=== PATIENT | male | born 1930 | race Caucasian/White ===

== ENCOUNTER 2017-01-04 23:33 | Inpatient (IN) | payer MEDICARE ==
--- NOTE | ~2017-01-04 | CN ---
Consultation Report [facility] [address] [place]. [address] NAME: JOCELYNE THOMAS LANETTE SR : [birth year] STATUS : ADM IN PAT#: [id number] AGE: 86 ADM/REG DATE : 01/05/17 MR#: [id number] REPORT SERV DATE: 01/06/17 DICTATED BY: CHANDU CISNEROS DATE: 01/06/17 REPORT STATUS : Draft TRANSCRIBED BY: MODReji DATE: 01/06/17 NEUROLOGY CONSULTATION DATE OF CONSULTATION: 01/06/2017 REASON FOR CONSULTATION: Acute encephalopathy. HOSPITALIST: Flaco Garcia II, MD HISTORY OF PRESENT ILLNESS: The patient is an 86-year-old male who has a history of progressive confusion, also gait abnormality, and as of Friday, he started having active hallucinations with delirium. According to the patient's son, the patient seem to be coping well until Friday. The patient went on all day trip with his son to [place]. During the ride, the patient began actively hallucinating. He saw a truck load of 250 cows. He also saw chickens and pigs that were flying and had active visual hallucinations of his . The patient was not aggressive or belligerent, however, he had a flight of ideas. He also saw all the different counties of [place] on the joshi. Consequently, he was brought to the hospital because of the acute mental status changes he was exhibiting. When questioned more extensively, the patient mentions that over the last nine months to one year, he has had a change in his gait, his gait has become more cumbersome, more slow, and shuffled. He has had trouble with imbalance. He cannot walk on an incline or decline because he will trip and fall. He has to use a cane for stability. The patient also mentions, however, that he has severe peripheral neuropathy due to his diabetes. The patient also has severe macular degeneration. He is legally blind. Because of this, he has started having visual hallucinations. Lastly, the patient denies having any urinary incontinence. PAST MEDICAL HISTORY: Dementia, stroke to the right basal ganglia region, melanoma, diabetic neuropathy, macular degeneration with blindness, gait abnormalities, hypertension, diabetes mellitus type 2, COPD, pulmonary fibrosis, pacemaker placement, BPPV, and history of tobacco abuse and rheumatoid arthritis. PAST SURGICAL HISTORY: Melanoma removal, pacemaker placement, cholecystectomy, left knee surgery, hemorrhoidectomy x3, right rotator cuff repair, left foot surgery, bladder surgery, and gout. HOME MEDICATION LIST: Includes Tylenol p.r.n., Zyloprim 300 mg daily, aspirin 81 mg daily, Symbicort inhaler 160 mg/4.5 mg two puffs twice a day, Plavix 75 mg daily, vitamin B12 a 1000 mg sublingual daily, Amaryl 2 mg daily, Remicade drip every six weeks, Hyzaar 100 mg/12.5 mg daily, prednisone 10 mg daily, and Plaquenil 200 mg twice a day. ALLERGIES: CODEINE. Consultation Report [facility] [address] [facility] [place]. [address] NAME: JOCELYNE THOMAS LANETTE SR : [birth year] STATUS : ADM IN [facility]#: [id number] AGE: 86 ADM/REG DATE : 01/05/17 MR#: [id number] REPORT SERV DATE: 01/06/17 DICTATED BY: CHANDU CISNREOS DATE: 01/06/17 REPORT STATUS : Draft TRANSCRIBED BY: SABA DATE: 01/06/17 SOCIAL HISTORY: The patient is a . His approximately three years ago. He lives with his son. He has six children. He had multiple various jobs throughout his life. He is a remote smoker. Does not drink alcohol or use recreational drugs. FAMILY HISTORY: The patient's mother in her 70s from an [place]. His father at age of 96 from old age. The patient had three brothers and four sisters. REVIEW OF SYSTEMS: For pertinent positives, please refer to HPI. PHYSICAL EXAMINATION: GENERAL: The patient is an 86-year-old male who stands 5 feet 8 inches tall and weighs 142 pounds. He is currently afebrile. VITAL SIGNS: Heart rate 60 and paced, respiratory rate is 20, O2 saturations on 1 L 98%, blood pressure 109/61. NEURO: The patient is chatty. He is pleasant and cooperative. He is alert and oriented x4. Speech is clear. Language fluent. Pupils are 3 mm, sluggish to react. EOMs intact. Hand motion only at 5 feet bilaterally. Peripheral vision, difficult to assess. Cranial nerves, otherwise cranial nerves II through XII are intact. [id number], no ataxia. Upper extremity strength is 5/5. There is no pronator drift. Upper DTRs 1+ bilaterally. Lower DTRs unable to elicit, severe neuropathy from the toes to above the knees, greater in the left than the right. Strength is a 4/5 bilaterally. The patient can ambulate, but his gait is wide based, it is shuffled, and he is very imbalanced. Romberg is untestable. LABORATORY DATA: CBC normal. BMP relatively normal. Glucose was down to 37, but is within normal range at this time. TSH 3.10. Urinalysis is negative for UTI. CT of the brain, stable, ventriculomegaly, no evidence of acute changes. ASSESSMENT/PLAN: 1. Acute encephalopathy, resolved, etiology unknown. The patient cannot undergo MRI since he has a pacemaker. CT of the brain showed no acute changes, but ventriculomegaly. The patient will have lab work checked. At this point, he cannot undergo a lumbar puncture since he is on Plavix. 2. Possible NPH. The patient will undergo NPH evaluation on an outpatient basis. 3. Dementia. The patient will also undergo a dementia workup on an outpatient basis. 4. Macular degeneration. 5. Severe peripheral neuropathy. The patient's education was done on diabetes management. Thank you again for including us in consultation. FLORES/SABA Consultation Report [address] [address] NAME: JOCELYNE THOMAS LANETTE SR : [birth year] STATUS : ADM IN PAT#: [id number] AGE: 86 ADM/REG DATE : 01/05/17 MR#: [id number] REPORT SERV DATE: 01/06/17 DICTATED BY: CHANDU CISNEROS DATE: 01/06/17 REPORT STATUS : Draft TRANSCRIBED BY: SABA DATE: 01/06/17 CHYNA Mendoza- / [id number] CC: MD Cristo Hodgson II, M.D.
--- NOTE | ~2017-01-04 | DS ---
Discharge Summary [address] [place]. [address] NAME: JOCELYNE THOMAS LANETTE SR : [birth year] STATUS : DIS IN PAT#: [id number] AGE: 86 ADM/REG DATE : 01/05/17 MR#: [id number] REPORT SERV DATE: 01/09/17 DICTATED BY: NIRAV HUSAIN DATE: 01/08/17 REPORT STATUS : Draft TRANSCRIBED BY: MODL DATE: 01/08/17 ADMISSION DATE: 01/04/2017 DISCHARGE DATE: 01/08/2017 DISCHARGE DIAGNOSES: 1. Acute encephalopathy, toxic metabolic with possible component of normal pressure hydrocephalus. 2. Possible normal pressure hydrocephalus. 3. Cognitive impairment, question underlying dementia. 4. 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 5. Previous stroke. 6. Acute kidney injury. 7. Type 2 diabetes with in-hospital hypoglycemia, off therapy, question related to Plaquenil, on hold at this time pending Rheumatology follow up. 8. Rheumatoid arthritis, on chronic immunosuppression with Plaquenil, low-dose prednisone and Remicade. 9. Chronic obstructive pulmonary disease. 10.Interstitial lung disease. 11.Nocturnal hypoxemia, on h.s. oxygen. 12.Hypertension. 13.Gout. 14.Legal blindness, secondary to macular degeneration. 15.Peripheral neuropathy. 16.Possible vitamin D deficiency. 17.Coronary disease, post stenting. 18.Sick sinus syndrome, post pacemaker placement. 19.B12 deficiency. OPERATIONS AND PROCEDURES: None. PRESENT ILLNESS: This is an 86-year-old white male, who was triaged in the emergency room on 01/04/2017, at 2323 hours, with worsening hallucinations and a change in mental status. After evaluation in the emergency room, he was referred to the Hospitalist Service for admission. He was seen by Dr. Dileep Zamudio and admitted as described on admission history and physical examination. ADDITIONAL HISTORY: Per Dr. Zamudio. PHYSICAL EXAMINATION: Per Dr. Zamudio. ADMISSION LABORATORY: Per Dr. Zamudio. HOSPITAL COURSE: He was admitted by Dr. Zamudio with: 1. Acute encephalopathy. Consideration was progression of dementia. Discharge Summary [address] [place]. [address] NAME: JOCELYNE THOMAS LANETTE SR : [birth year] STATUS : DIS IN PAT#: [id number] AGE: 86 ADM/REG DATE : 01/05/17 MR#: [id number] REPORT SERV DATE: 01/09/17 DICTATED BY: NIRAV HUSAIN DATE: 01/08/17 REPORT STATUS : Draft TRANSCRIBED BY: MODReji DATE: 01/08/17 2. Acute kidney injury. 3. All the above occurring in the above-mentioned comorbidities. He was admitted to [address] [place] [address]. Antipsychotics were initiated. Neurology consultation was obtained. His hospital care was by Dr. Garcia on 01/05/2017 and 01/06/2017, and the undersigned on 01/07/2017 and 01/08/2017. He was seen by Neurology, Abbi Lewsi and Dr. Clemons. MRI was suggested, but could not be done because of his pacemaker. NPH was entertained, but a lumbar puncture could not be done because of his Plavix use. It was suggested this be considered on an outpatient basis when cleared for temporary Plavix discontinuation by Cardiology. On admission, his losartan and hydrochlorothiazide was discontinued. Subsequently, his glimepiride was discontinued when he became hypoglycemic. He was given IV hydration. When initially seen by me on 01/07/2017, his daughter was present. The patient had no new symptoms. He actually was asymptomatic. Overall, he was thought to be close to his baseline state except for some hypoglycemia. At this point, he was off glimepiride. There was concern that some of his hypoglycemia might be related to Plaquenil, which was discontinued. Subsequent blood sugars were normal. Additional history noted that his visual hallucinations dated about 2 years from a head injury. When seen on 01/08/2017, he was initially noted to be ambulating in green with another daughter. The patient was cognitively clearer than he had been in the previous 24 hours. He was basically asymptomatic. There were no new findings on exam. His data relative to his presentation was reviewed: 1. A CMP had been normal except for mild hypernatremia. A TSH, folate, B12, and ammonia levels had all been normal. An ionized calcium was borderline high at 5.04. A vitamin D25(OH) was low at 21. 2. CBCs were normal. In addition to the above, a chest x-ray had not shown any new pulmonary infiltrate with stable advanced fibrotic lung disease. Telemetry monitoring showed a paced rhythm with occasional PVCs without any sustained arrhythmias. At this point, it was felt he had achieved a level of improvement and stability where he could be safely discharged home with outpatient followup to see Dr. Melvin, Dr. King, the Neurology group, Dr. Ga, and his primary care physician, Dr. Robbins. Current plans are if cleared by Dr. Melvin for temporary discontinuation of Plavix, he would have a large volume lumbar puncture done by Neurology, i.e. normal pressure hydrocephalus diagnosis. His Plaquenil will be held at this time given his current blood sugars, pending outpatient followup with Rheumatology. Discharge Summary [place] [id number] [place]. [address] NAME: JOCELYNE THOMAS LANETTE SR : [birth year] STATUS : DIS IN PAT#: [id number] AGE: 86 ADM/REG DATE : 01/05/17 MR#: [id number] REPORT SERV DATE: 01/09/17 DICTATED BY: NIRAV HUSAIN DATE: 01/08/17 REPORT STATUS : Draft TRANSCRIBED BY: MODL DATE: 01/08/17 Home Health Care will be arranged for occupational therapy, evaluation, and treatment, medication reconciliation, home evaluation, and diabetes management. 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 DISCHARGE MEDICATIONS: Pending outpatient followup: Zyloprim 300 mg daily, aspirin 81 mg daily, Plavix 75 mg daily, B12 1000 mcg sublingually daily, prednisone 10 mg daily, Symbicort two puffs twice daily, Remicade every 6 weeks, Hyzaar one-half tablet daily 100/12.5, and no Amaryl. He will continue his home O2 at night. On office followup with Dr. Robbins in one week, he will need a BMP and blood pressure check. Discharge time greater than 30 minutes. DD/MODL Nirav Husain M.D. / [id number] CC: [place] Christine M.D. Chun C. Huang, MD James E Gilbert II, MD Louann L. Johnson, [facility] Aristeo Melvin M.D., F.A.C.C. Dileep Zamudio M.D.
--- NOTE | ~2017-01-04 | HP ---
History And Physical [address] [address] NAME: JOCELYNE THOMAS LANETTE SR : [birth year] STATUS : ADM Sigifredo PAT#: [id number] AGE: 86 ADM/REG DATE : 01/04/17 MR#: [id number] REPORT SERV DATE: 01/05/17 DICTATED BY: TONIA MCNEIL DATE: 01/05/17 REPORT STATUS : Draft TRANSCRIBED BY: MODReji DATE: 01/05/17 DATE OF ADMISSION: 01/04/2017 CHIEF COMPLAINT: An 86-year-old male presenting with increasing progressive confusion, now to a point where he has active hallucinations with agitation. HISTORY OF PRESENT ILLNESS: The patient's history was obtained through careful interview with patient, son, two daughters coupled with review of [facility] medical records. The patient has known symptoms of dementia, although he has never been actually given the diagnosis of dementia. It has really progressed over the last six weeks, but in the last week alone it has become at times difficult to control and debilitating according to the family. The patient awoke at about 5:00 a.m. on the morning leading up to admission and he immediately began to be talkative, agitated, and have active hallucinations throughout the day that at one point he claims he had a floating horse head talking to him, that there were cattle trucks driving up near his house, and when he came to the hospital he believed that he was being brought to a barn. He has had no hemiparesis, no dysarthria, no double vision, no facial droop, no gait disturbance, no headaches. He has had a good appetite. No weight loss. No shortness of breath. No chest pain. No nausea or vomiting. No diarrhea. Sometimes his left upper quadrant has intermittent discomfort and pain, but he is unable to describe this pain further. REVIEW OF SYSTEMS: Otherwise, a 14-point review of systems was obtained and was negative. PAST MEDICAL HISTORY: 1. Dementia. 2. Stroke, right basal ganglia lacunar. 3. Melanoma. 4. Neuropathy. 5. Macular degeneration with blindness. 6. Gout. 7. Hypertension. 8. Diabetes. 9. COPD. 10.Pulmonary fibrosis followed by Dr. Ga on nighttime nasal cannula oxygen. 11.Pacemaker. 12.Benign positional vertigo. History And Physical [address] [place]. [address] NAME: JOCELYNE THOMAS LANETTE SR : [birth year] STATUS : ADM Sigifredo PAT#: [id number] AGE: 86 ADM/REG DATE : 01/04/17 MR#: [id number] REPORT SERV DATE: 01/05/17 DICTATED BY: TONIA MCNEIL DATE: 01/05/17 REPORT STATUS : Draft TRANSCRIBED BY: MODL DATE: 01/05/17 PAST SURGICAL HISTORY: 1. Melanoma removed from the arm in 2006. 2. Pacemaker. 3. Cholecystectomy. 4. Left knee surgery. 5. Hemorrhoidectomy x3. 6. Right rotator cuff repair. 7. Left foot surgery. 8. Bladder surgery. ALLERGIES: TO CODEINE. SOCIAL HISTORY: Quit smoking when he was 49 years old. No alcohol use. He has been a for about three years now. He is living with his son in [place], [place]. FAMILY HISTORY: Heart disease, diabetes, and stroke. CURRENT MEDICATIONS: 1. Tylenol. 2. Allopurinol 300 mg daily. 3. Aspirin 81 mg daily. 4. Symbicort two puffs inhale twice a day. 5. Plavix 75 mg daily. 6. Vitamin B12. 7. Amaryl 2 mg daily. 8. Remicade drip every six weeks. 9. Hyzaar 100/12.5 mg p.o. daily. 10.Prednisone 10 mg daily. 11.Plaquenil 200 mg p.o. b.i.d. PHYSICAL EXAMINATION: VITAL SIGNS: Temperature 98.9, pulse 70, blood pressure 205/95, respiratory rate 16, and O2 saturation 92% on room air. GENERAL: An ill male, just agitated, confused, and rambling on with active hallucinations. No evidence of distress otherwise. HEENT: Pupils equal, round, and reactive to light. No conjunctival pallor. No scleral icterus. Nares are patent. Oropharynx is clear of obstruction. Dry mucous membranes. NEUROLOGICAL: Difficult to assess the patient's cranial nerves as he does not to participate fully with exam, but it seems that he has no facial droop. No cranial nerve abnormalities that are obvious, and he is moving all four extremities symmetrically. NECK: Trachea midline. No thyromegaly. LYMPH: No cervical lymphadenopathy. No supraclavicular lymphadenopathy. RESPIRATORY: Clear to auscultation at bases. There are mild dry crackles throughout exam. No respiratory distress. CARDIOVASCULAR: Regular rate and rhythm. No murmurs, rubs, or gallops. No extremity edema is appreciated. History And Physical [address] [place]. [address] NAME: JOCELYNE THOMASN SR : [birth year] STATUS : ADM Sigifredo PAT#: [id number] AGE: 86 ADM/REG DATE : 01/04/17 MR#: [id number] REPORT SERV DATE: 01/05/17 DICTATED BY: TONIA MCNEIL DATE: 01/05/17 REPORT STATUS : Draft TRANSCRIBED BY: MODL DATE: 01/05/17 ABDOMEN: Soft, nontender, and nondistended. Normal bowel sounds auscultated throughout. No organomegaly. DERMATOLOGICAL: Warm and dry extremities. No pallor. No cyanosis. PSYCHIATRIC: Actively hallucinating and animated affects. Claims to be in a good mood. Alert. Disoriented x3. LABORATORY DATA: White blood cell count 9.1, hemoglobin 15, hematocrit 45, and platelets 193. Sodium 144, potassium 3.3, chloride 107, bicarb 33, BUN 20, creatinine 1.14, and glucose 153. Baseline creatinine of 0.8. STUDIES: 1. Chest x-ray by my own evaluation shows chronic interstitial lung disease, stable compared to October 2012 chest x-ray. 2. CT scan of the brain without contrast shows no acute intracranial process. ASSESSMENT AND PLAN: 1. Acute encephalopathy, seems to be a progression of his dementia. I discussed with family. We will try antipsychotics. Obtain Neurology consult. Noted a negative CT scan of the brain. We will ask Case Management to consult perhaps the patient needs to be transition to a [facility] ? 2. Acute kidney injury. Place on IV fluids. Hold hydrochlorothiazide. 3. Rheumatoid arthritis. Check ESR. Continue Remicade, prednisone, and Plaquenil. 4. Chronic interstitial lung disease. KPL/MODL Tonia Mcneil M.D. / [id number] CC: MD Cristo Hodgson II, M.D.
[~2017-01-04 23:33] MED LIST: AGGRENOX PO; ASMANEX 30110 MCG IN; ATROVENT INH; DCN100 PO; FOLIC PO; FORADIL INH; HYDROXYCHLOROQUINE PO; MONO20 PO; MTX2.5 PO; P5 PO; REMICADE IV; Z300 PO; ZANTAC150 MG PO; ZOCOR40 PO
[2017-01-05 01:24] LABS: BASOPHILS 0.3 %; BASOPHILS ABSOLUTE 0.03 10/3/uL (0.0-0.16); EOSINOPHILS 3.5 %; EOSINOPHILS ABSOLUTE 0.32 10/3/uL (0.0-0.53); ER CBC TAT 0 Hrs 08 Mins; HEMATOCRIT 44.9 % (40.0-51.0); HEMOGLOBIN 15.2 g/dL (13.6-17.8); IMMATURE GRANULOCYTES 0.2 %; IMMATURE GRANULOCYTES ABSOLUTE 0.02 10/3/uL (0.0-0.11); LYMPHOCYTES 20.2 %; LYMPHOCYTES ABSOLUTE 1.84 10/3/uL (0.67-4.30); MEAN CORPUS HGB CONC 33.9 g/dL (32.0-36.0); MEAN CORPUSCULAR HEMOGLOB 31.1 pg (26.0-34.0); MEAN PLATELET VOLUME 10.9 fL (9.2-13.0); MONOCYTES 9.4 %; MONOCYTES ABSOLUTE 0.86 10/3/uL (0.21-1.20); NEUTROPHILS 66.4 %; NEUTROPHILS ABSOLUTE 6.06 10/3/uL (2.02-8.40); PLATELET COUNT 193 10/3/uL (150-400); RBC DISTRIBUTION WIDTH 13.5 % (12.0-16.0); RED CELL COUNT 4.88 10/6/uL (4.7-6.1); WHITE BLOOD CELLS 9.1 10/3/uL (4.5-10.5)
[2017-01-05 01:25] LABS: MANUAL DIFF NO %
[2017-01-05] MEDS ORDERED: HYZAAR1 TAB PO ×2 (01:31→01:32)
[2017-01-05] MEDS ORDERED: PLAVIX PO (01:31)
[2017-01-05] MEDS ORDERED: AMARYL2 PO (01:32)
[2017-01-05] MEDS ORDERED: P10 PO (01:33)
[2017-01-05] MEDS ORDERED: ASAB PO (01:34)
[2017-01-05 01:36] LABS: PARTIAL THROMBO TIME 34.2 SEC (22.5-37.2); PROTIME (NOT ORD) 13.3 SEC (12.0-14.5)
[2017-01-05] MEDS ORDERED: VITAMIN B-121000 MC1 SL (01:36)
[2017-01-05] MEDS ORDERED: SYMBICORT 160/41 INH INH (01:37)
[2017-01-05] MEDS ORDERED: T PO (01:38)
[2017-01-05 01:39] LABS: BUN (BLOOD UREA NITROGEN) 20 MG/DL (6-23); CALCIUM, SERUM 8.9 MG/DL (8.5-10.4); CHEST PAIN PROFILE TAT 0 Hrs 23 Mins; CHLORIDE, SERUM 107 MMOL/L (96-112); CREATININE 1.14 MG/DL (0.70-1.30); GFR AFRICAN AMERICAN 67 ML/MIN (>=60); GFR NON AFRICAN AMERICAN 58 ML/MIN (>=60); POTASSIUM, SERUM 3.3 MMOL/L (3.5-5.3); SODIUM, SERUM 146 MMOL/L (135-148); TROPONIN I <0.02 NG/ML (<0.05)
[2017-01-05 01:40] LABS: CO2 (CARBON DIOXIDE) 33 MMOL/L (24-34); GLUCOSE, SERUM 153 MG/DL (60-99)
[2017-01-05 03:08] LABS: ASCORBIC ACID (UR NOT ORDER) NEG (NEG); BILIRUBIN, URINE NEGATIVE (NEG); ER URINALYSIS TAT 0 Hrs 00 Mins; KETONE, URINE NEGATIVE (NEG); LEUKOCYTE ESTERASE(NOT OR NEG (NEG); NITRITE (URINE) NEG (NEG); WBC (NOT ORDERED) (RFLEX) 1 (0-5)
[2017-01-05 12:09] LABS: BASOPHILS 0.4 %; BASOPHILS ABSOLUTE 0.04 10/3/uL (0.0-0.16); EOSINOPHILS ABSOLUTE 0.36 10/3/uL (0.0-0.53); HEMATOCRIT 42.4 % (40.0-51.0); HEMOGLOBIN 14.4 g/dL (13.6-17.8); IMMATURE GRANULOCYTES 0.1 %; IMMATURE GRANULOCYTES ABSOLUTE 0.01 10/3/uL (0.0-0.11); LYMPHOCYTES 13.5 %; LYMPHOCYTES ABSOLUTE 1.23 10/3/uL (0.67-4.30); MEAN CORPUSCULAR HEMOGLOB 31.1 pg (26.0-34.0); MEAN CORPUSCULAR VOLUME 91.6 fL (80-100); MEAN PLATELET VOLUME 10.9 fL (9.2-13.0); MONOCYTES 8.9 %; MONOCYTES ABSOLUTE 0.81 10/3/uL (0.21-1.20); NEUTROPHILS 73.1 %; NEUTROPHILS ABSOLUTE 6.66 10/3/uL (2.02-8.40); PLATELET COUNT 172 10/3/uL (150-400); RBC DISTRIBUTION WIDTH 13.5 % (12.0-16.0); RED CELL COUNT 4.63 10/6/uL (4.7-6.1); WHITE BLOOD CELLS 9.1 10/3/uL (4.5-10.5)
[2017-01-05 12:10] LABS: MANUAL DIFF NO %
[2017-01-05 12:17] LABS: INTERNATIONAL NORMAL RATI 1.1 UNITS (-); PARTIAL THROMBO TIME 45.5 SEC (22.5-37.2); PROTIME (NOT ORD) 14.1 SEC (12.0-14.5)
[2017-01-05 12:36] LABS: A/G RATIO 0.8 (0.7-1.9); ALBUMIN 2.8 G/DL (3.5-5.0); ALKALINE PHOSPHATASE 92 U/L (45-117); BUN (BLOOD UREA NITROGEN) 17 MG/DL (6-23); CALCIUM, SERUM 8.5 MG/DL (8.5-10.4); CHLORIDE, SERUM 111 MMOL/L (96-112); CREATININE 0.85 MG/DL (0.70-1.30); GFR AFRICAN AMERICAN 91 ML/MIN (>=60); GFR NON AFRICAN AMERICAN 78 ML/MIN (>=60); GLOBULIN 3.5 G/DL (2.5-4.1); POTASSIUM, SERUM 3.6 MMOL/L (3.5-5.3); SGOT(AST) 25 U/L (5-40); SGPT(ALT) 24 U/L (5-65); SODIUM, SERUM 147 MMOL/L (135-148); TOTAL BILIRUBIN 0.5 MG/DL (0-1.2); TOTAL PROTEIN 6.3 G/DL (6.0-8.5)
[2017-01-05 12:39] LABS: CO2 (CARBON DIOXIDE) 27 MMOL/L (24-34); GLUCOSE, SERUM 91 MG/DL (60-99)
[2017-01-05 13:09] LABS: PROCALCITONIN <0.05 ng/mL (<0.5)
[2017-01-05 13:16] LABS: SED RATE 8 MM/HR (0-15)
[2017-01-06 06:58] LABS: BUN (BLOOD UREA NITROGEN) 19 MG/DL (6-23); CALCIUM, SERUM 8.4 MG/DL (8.5-10.4); CHLORIDE, SERUM 113 MMOL/L (96-112); CO2 (CARBON DIOXIDE) 24 MMOL/L (24-34); CREATININE 0.89 MG/DL (0.70-1.30); GFR AFRICAN AMERICAN 89 ML/MIN (>=60); GFR NON AFRICAN AMERICAN 77 ML/MIN (>=60); GLUCOSE, SERUM 37 MG/DL (60-99); POTASSIUM, SERUM 3.7 MMOL/L (3.5-5.3); SODIUM, SERUM 147 MMOL/L (135-148)
[2017-01-06 21:00] LABS: FREE T4 0.91 NG/DL (0.76-1.46)
[2017-01-06 21:01] LABS: FOLATE 8.6 NG/ML (>5.2); ULTRASENSITIVE TSH 1.3 MCIU/ML (0.358-3.740)
[2017-01-07 13:01] LABS: BUN (BLOOD UREA NITROGEN) 20 MG/DL (6-23); CALCIUM, SERUM 8.3 MG/DL (8.5-10.4); CHLORIDE, SERUM 109 MMOL/L (96-112); CO2 (CARBON DIOXIDE) 28 MMOL/L (24-34); CREATININE 0.92 MG/DL (0.70-1.30); GFR AFRICAN AMERICAN 86 ML/MIN (>=60); GFR NON AFRICAN AMERICAN 75 ML/MIN (>=60); POTASSIUM, SERUM 3.7 MMOL/L (3.5-5.3); SODIUM, SERUM 144 MMOL/L (135-148)
[2017-01-07 13:02] LABS: GLUCOSE, SERUM 97 MG/DL (60-99)
[2017-06-08] MEDS ORDERED: COZAAR100 MG PO (14:07)
[2017-06-08] MEDS ORDERED: PLAQ200B PO (14:07)
[2017-06-08] MEDS ORDERED: ASAB PO (14:10)
[2017-06-08] MEDS ORDERED: SYMBICORT 160/41 INH INH (14:11)
[2017-06-08] MEDS ORDERED: 8 HOUR650 MG PO (14:12)
[2017-06-08] MEDS ORDERED: REMICADE IV (14:12)
[2017-06-08] MEDS ORDERED: P5 PO (14:12)
[2017-06-08] MEDS ORDERED: AMARYL2 PO (14:13)
[2017-06-08] MEDS ORDERED: Z300 PO (14:13)
[2017-06-11] MEDS ORDERED: ULTRAM50 PO (14:22)
== END 2017-01-08 15:31 | disposition home health service (06) | DRG 56 ==
LOC: ER 23:33 → 6NO 23:59
PROVIDERS: Emergency Medicine; Hospitalist; Internal Medicine; Nurse Practitioner
DX: G91.2 (Idiopathic) normal pressure hydrocephalus (principal); G92 Toxic encephalopathy; N17.9 Acute kidney failure, unspecified; J84.9 Interstitial pulmonary disease, unspecified; J96.11 Chronic respiratory failure with hypoxia; F03.91 Unspecified dementia, unspecified severity, with behavioral disturbance; F05 Delirium due to known physiological condition; J44.9 Chronic obstructive pulmonary disease, unspecified; H81.10 Benign paroxysmal vertigo, unspecified ear; R44.1 Visual hallucinations; E11.649 Type 2 diabetes mellitus with hypoglycemia without coma; E55.9 Vitamin D deficiency, unspecified; E11.42 Type 2 diabetes mellitus with diabetic polyneuropathy; M06.9 Rheumatoid arthritis, unspecified; H35.30 Unspecified macular degeneration; H54.8 Legal blindness, as defined in USA; I25.10 Atherosclerotic heart disease of native coronary artery without angina pectoris; I49.3 Ventricular premature depolarization; E86.0 Dehydration; E11.65 Type 2 diabetes mellitus with hyperglycemia; M10.9 Gout, unspecified; Z86.73 Personal history of transient ischemic attack (TIA), and cerebral infarction without residual deficits; Z85.820 Personal history of malignant melanoma of skin; Z95.0 Presence of cardiac pacemaker; Z79.899 Other long term (current) drug therapy; Z95.5 Presence of coronary angioplasty implant and graft; Z91.81 History of falling; Z79.52 Long term (current) use of systemic steroids; Z87.891 Personal history of nicotine dependence; Z79.84 Long term (current) use of oral hypoglycemic drugs; Z90.49 Acquired absence of other specified parts of digestive tract; Z53.09 Procedure and treatment not carried out because of other contraindication
CPT/HCPCS: 70450; 71010; 80048; 80053; 81001; 82140; 82306; 82330; 82607; 82746; 82962; 83735; 84145; 84439; 84443; 84484; 85025; 85610; 85652; 85730; 94640; 99285; A9270-GY; J3486

== ENCOUNTER 2017-03-23 12:12 | Emergency (ER) | payer MEDICARE ==
[~2017-03-23 12:12] MED LIST changes: +AMARYL2 PO; +ASAB PO; +HYZAAR1 TAB PO; +P10 PO; +PLAVIX PO; +SYMBICORT 160/41 INH INH; +T PO; +VITAMIN B-121000 MC1 SL
[2017-03-23 13:10] LABS: BASOPHILS 0.7 %; BASOPHILS ABSOLUTE 0.06 10/3/uL (0.0-0.16); EOSINOPHILS 2.6 %; EOSINOPHILS ABSOLUTE 0.24 10/3/uL (0.0-0.53); HEMOGLOBIN 14.4 g/dL (13.6-17.8); IMMATURE GRANULOCYTES 0.1 %; IMMATURE GRANULOCYTES ABSOLUTE 0.01 10/3/uL (0.0-0.11); LYMPHOCYTES 11.4 %; LYMPHOCYTES ABSOLUTE 1.04 10/3/uL (0.67-4.30); MANUAL DIFF NO %; MEAN CORPUS HGB CONC 32.7 g/dL (32.0-36.0); MEAN CORPUSCULAR HEMOGLOB 30.7 pg (26.0-34.0); MEAN CORPUSCULAR VOLUME 93.8 fL (80-100); MEAN PLATELET VOLUME 10.7 fL (9.2-13.0); MONOCYTES 5.3 %; MONOCYTES ABSOLUTE 0.48 10/3/uL (0.21-1.20); NEUTROPHILS 79.9 %; NEUTROPHILS ABSOLUTE 7.27 10/3/uL (2.02-8.40); PLATELET COUNT 193 10/3/uL (150-400); RED CELL COUNT 4.69 10/6/uL (4.7-6.1); WHITE BLOOD CELLS 9.1 10/3/uL (4.5-10.5)
[2017-03-23 14:08] LABS: A/G RATIO 0.9 (0.7-1.9); ALBUMIN 3.1 G/DL (3.5-5.0); ALKALINE PHOSPHATASE 113 U/L (45-117); BUN (BLOOD UREA NITROGEN) 23 MG/DL (6-23); CALCIUM, SERUM 8.8 MG/DL (8.5-10.4); CHLORIDE, SERUM 110 MMOL/L (96-112); CO2 (CARBON DIOXIDE) 31 MMOL/L (24-34); CREATININE 1.04 MG/DL (0.70-1.30); GFR AFRICAN AMERICAN 74 ML/MIN (>=60); GFR NON AFRICAN AMERICAN 64 ML/MIN (>=60); GLOBULIN 3.6 G/DL (2.5-4.1); GLUCOSE, SERUM 115 MG/DL (60-99); POTASSIUM, SERUM 3.7 MMOL/L (3.5-5.3); SGOT(AST) 22 U/L (5-40); SGPT(ALT) 20 U/L (5-65); SODIUM, SERUM 145 MMOL/L (135-148); TOTAL BILIRUBIN 0.4 MG/DL (0-1.2); TOTAL PROTEIN 6.7 G/DL (6.0-8.5)
[2017-06-08] MEDS ORDERED: COZAAR100 MG PO (14:07)
[2017-06-08] MEDS ORDERED: PLAQ200B PO (14:07)
[2017-06-08] MEDS ORDERED: ASAB PO (14:10)
[2017-06-08] MEDS ORDERED: SYMBICORT 160/41 INH INH (14:11)
[2017-06-08] MEDS ORDERED: 8 HOUR650 MG PO (14:12)
[2017-06-08] MEDS ORDERED: REMICADE IV (14:12)
[2017-06-08] MEDS ORDERED: P5 PO (14:12)
[2017-06-08] MEDS ORDERED: Z300 PO (14:13)
[2017-06-08] MEDS ORDERED: AMARYL2 PO (14:13)
[2017-06-11] MEDS ORDERED: ULTRAM50 PO (14:22)
== END 2017-03-23 15:16 | disposition home or self-care (01) ==
LOC: ER 12:12
PROVIDERS: Physician Assistant
DX: S70.01XA Contusion of right hip, initial encounter (principal); Z88.5 Allergy status to narcotic agent; Z79.82 Long term (current) use of aspirin; Z79.52 Long term (current) use of systemic steroids; Z79.899 Other long term (current) drug therapy; W19.XXXA Unspecified fall, initial encounter
CPT/HCPCS: 72192; 73552-RT; 80053; 85025; 99284